=== PATIENT | female | born 1975 | race Caucasian/White ===

== ENCOUNTER 2017-03-13 20:43 | Emergency (ER) | payer SELFPAY ==
[2017-03-13 21:30] LABS: APPEARANCE CLEAR (CLEAR); COLOR ORANGE (YELLOW); SPECIFIC GRAVITY 1.015 (1.005-1.020)
[2017-03-13 21:31] LABS: BACTERIA FEW /hpf (NONE SEEN); EPITHELIAL CELLS 0-5 /hpf (0-5); MUCUS <1+ /lpf (NONE SEEN); RED CELLS - URINE 0-5 /hpf (0-5); WHITE CELLS - URINE 0-5 /hpf (0-5)
[2017-03-13 23:35] LABS: HCG URINE NEGATIVE (NEGATIVE)
== END 2017-03-14 00:12 | disposition home or self-care (01) ==
LOC: D.ER 20:43
PROVIDERS: Physician Assistant Medical
DX: R30.0 Dysuria (principal)

== ENCOUNTER 2017-04-05 17:14 | Emergency (ER) | payer MEDICAID ==
[2017-04-05 17:40] LABS: BASOPHILS 0.3 % (0-2); HEMATOCRIT 40.5 % (36.0-48.0); HEMOGLOBIN 13.6 g/dL (12-16); IMMATURE GRANULOCYTES 0.4 % (0-5); LYMPHOCYTES 33.5 % (15-50); MCHC 33.6 g/dL (31.0-37.0); MCV 89.4 fL (80.0-100.0); MEAN PLATELET VOLUME 9.7 fL (7.4-10.4); MONOCYTES 7.6 % (2-11); NEUTROPHILS 55.2 % (40-80); PLATELET COUNT 227 10x3/uL (130-400); RBC 4.53 10x6/uL (4.00-5.40)
[2017-04-05 18:08] LABS: ALBUMIN 3.7 g/dL (3.4-5.0); ANION GAP 14.1 mmol/L (8-16); BILIRUBIN - TOTAL 0.65 mg/dL (0.2-1.3); CARBON DIOXIDE 28.4 mmol/L (21.0-32.0); CREATININE - SERUM 0.9 mg/dL (0.6-1.3); POTASSIUM - SERUM 3.5 mmol/L (3.5-5.1); PROTEIN - SERUM 7.5 g/dL (6.4-8.2)
[2017-04-05 18:45] LABS: APPEARANCE HAZY (CLEAR); BILIRUBIN NEGATIVE (NEGATIVE); COLOR DK YELLOW (YELLOW); GLUCOSE NEGATIVE (NEGATIVE); KETONE NEGATIVE (NEGATIVE); NITRITE NEGATIVE (NEGATIVE); PROTEIN NEGATIVE (NEGATIVE); UROBILINOGEN NORMAL (NORMAL)
[2017-04-05 18:48] LABS: BACTERIA FEW /hpf (NONE SEEN); EPITHELIAL CELLS 0-5 /hpf (0-5); MUCUS <1+ /lpf (NONE SEEN)
== END 2017-04-05 22:42 | disposition home or self-care (01) ==
LOC: D.ER 17:14
PROVIDERS: Emergency Medicine
DX: R10.31 Right lower quadrant pain (principal); K59.00 Constipation, unspecified